=== PATIENT | male | born 1995 | race Caucasian/White ===

== ENCOUNTER 2023-08-13 09:16 | Emergency (ER) | payer OTHER, SELFPAY ==
[2023-08-13] MEDS ORDERED: Rabies Vaccine Human 2.5 UNITS VIAL ONE (11:09)
[2023-08-13] MEDS ORDERED: Rabies Immune Globulin/PF 300 UNITS/ML VIAL ONE (11:10)
== END 2023-08-13 12:03 | disposition home or self-care (01) ==
LOC: ERS 09:16
DX: S61.051A Open bite of right thumb without damage to nail, initial encounter (principal); W55.01XA Bitten by cat, initial encounter; Z23 Encounter for immunization
CPT/HCPCS: 90375; 90471; 90675; 99283